=== PATIENT | female | born 1955 | race Caucasian/White ===

== ENCOUNTER 2017-06-03 06:26 | Inpatient (IN) | payer OTHER ==
[~2017-06-03] VITALS: Ht 162.6 cm; Wt 62.5 kg
[2017-06-03] MEDS ORDERED: SODIUM CHLORIDE FLUSH 10ML SYR IVF ONE (07:00)
[2017-06-03] MEDS ORDERED: NITROGLYCERIN SINGLE TAB 0.4 MG SL PRN (07:00)
[2017-06-03] MEDS ORDERED: NITROGLYCERIN SINGLE TAB 0.4 MG SL ONE (07:05)
[2017-06-03 07:39] LABS: BLOOD UREA NITROGEN 14 mg/dL (7-18)
[2017-06-03 07:46] LABS: IS PT STATUS REG ER OR PRE ER? YES
[2017-06-03] MEDS ORDERED: NITROGLYCERIN OINT 2%, 1GM TP ONE ×2 (08:30→09:01)
[2017-06-03] MEDS ORDERED: SIMV10TA3 PO (08:40)
[2017-06-03] MEDS ORDERED: MINO100C PO (08:40)
[2017-06-03] MEDS ORDERED: ESTR1PAT79 TD (08:44)
[2017-06-03] MEDS ORDERED: RANI150T8 PO (08:45)
[2017-06-03] MEDS ORDERED: MULT-717 PO (08:45)
[2017-06-03] MEDS ORDERED: UBID100C24 PO (08:46)
[2017-06-03] MEDS ORDERED: CALC-116 PO (08:47)
[2017-06-03] MEDS ORDERED: OMEG-133 PO (08:48)
[2017-06-03] MEDS ORDERED: VIT1TABL3 PO (08:49)
[2017-06-03] MEDS ORDERED: NITROGLYCERIN 0.4 MG BOTTLE (25 TABS) SL PRN (09:30)
[2017-06-03] MEDS ORDERED: ONDANSETRON 2MG/ML, 2ML IVPush PRN (09:30)
[2017-06-03] MEDS: ACETAMINOPHEN 325 MG TABLET PO PRN ×2 (10:23→15:23)
[2017-06-03] MEDS ORDERED: [UNRECOGNIZED DRUG - REMARK] XX PRN (10:30)
[2017-06-03] MEDS: OMEGA-3/FISH OIL CAPSULE PO SCH (10:30)
[2017-06-03 10:50] VITALS: BP 160/83
[2017-06-03 13:03] VITALS: BP 121/76
[2017-06-03 14:22] LABS: IS PT STATUS REG ER OR PRE ER? NO
[2017-06-03 19:50] VITALS: BP 143/83
[2017-06-03] MEDS: SODIUM CHLORIDE FLUSH 10ML SYR IVF SCH (20:24)
[2017-06-03] MEDS: FAMOTIDINE 20 MG TABLET PO SCH (20:25)
[2017-06-03] MEDS ORDERED: SIMVASTATIN 10 MG TABLET PO SCH (21:00)
[2017-06-03 21:01] LABS: IS PT STATUS REG ER OR PRE ER? NO
[2017-06-04 02:54] VITALS: BP 125/75
[2017-06-04 07:05] VITALS: BP 127/80
[2017-06-04] MEDS ORDERED: REGADENOSON 0.4 MG/5 ML SYRINGE ONE (07:57)
[2017-06-04] MEDS ORDERED: [UNRECOGNIZED DRUG - OTHER] PO SCH (09:00)
[2017-06-04] MEDS ORDERED: B2 PO SCH (09:00)
[2017-06-04] MEDS ORDERED: B12 PO SCH (09:00)
[2017-06-04] MEDS ORDERED: MULTIVITAMINS/MINERALS TABLET PO SCH (09:00)
[2017-06-04] MEDS ORDERED: ESTRADIOL 0.025 MG TD SCH (09:00)
[2017-06-04] MEDS ORDERED: TEMPLATE NON-FORMULARY MED. (Ubidecarenone (Coq-10) 200 MG) PO SCH (09:00)
[2017-06-04] MEDS ORDERED: MULTIVITS,STRESS FORMULA 1 TABLET PO SCH (09:00)
[2017-06-04] MEDS ORDERED: FOLIC ACID PO SCH (09:00)
[2017-06-04] MEDS ORDERED: MINOCYCLINE 100MG CAPSULE PO SCH (09:00)
[2017-06-04] MEDS ORDERED: B6 PO SCH (09:00)
[2017-06-04] MEDS ORDERED: VIT D3 PO SCH (09:00)
[2017-06-04] MEDS: OMEGA-3/FISH OIL CAPSULE PO SCH (10:13)
[2017-06-04] MEDS: FAMOTIDINE 20 MG TABLET PO SCH (10:14)
[2017-06-04] MEDS: SODIUM CHLORIDE FLUSH 10ML SYR IVF SCH (10:16)
== END 2017-06-04 14:12 | disposition home or self-care (01) | DRG 313 ==
LOC: ED 08:18 → EDIP 08:19 → ED 08:21 → 5SO 09:51 → DCLOUNGE 06-04 13:48
PROVIDERS: ADMIT Hospitalist; ATTEND Hospitalist
DX: R07.89 Other chest pain (principal); E78.5 Hyperlipidemia, unspecified; I10 Essential (primary) hypertension; K21.9 Gastro-esophageal reflux disease without esophagitis; I08.0 Rheumatic disorders of both mitral and aortic valves; Z82.0 Family history of epilepsy and other diseases of the nervous system; Z82.3 Family history of stroke; Z82.49 Family history of ischemic heart disease and other diseases of the circulatory system; Z90.49 Acquired absence of other specified parts of digestive tract; Z90.710 Acquired absence of both cervix and uterus; Z88.2 Allergy status to sulfonamides; Z98.42 Cataract extraction status, left eye; Z98.41 Cataract extraction status, right eye
CPT/HCPCS: 36415; 71010; 78452; 80048; 82040; 84484; 85025; 85379; 93005; 93017; 99285; J2785; A9502; C9898

== ENCOUNTER → 2018-01-21 | Outpatient (CLI) | payer OTHER ==
[~2018-01-21] MED LIST: CALC-116 PO; ESTR1PAT79 TD; MINO100C PO; MULT-717 PO; OMEG-133 PO; RANI150T8 PO; SIMV10TA3 PO; UBID100C24 PO; VIT1TABL3 PO
== END | disposition home or self-care (01) ==
LOC: CFH 12:43
PROVIDERS: ATTEND Specialist
DX: E04.2 Nontoxic multinodular goiter (principal)
CPT/HCPCS: 76536